=== PATIENT | male | born 1950 | race Caucasian/White ===

== ENCOUNTER 2021-12-13 01:49 | Day surgery (SDC) | payer MEDICARE, SELFPAY ==
--- NOTE | 2021-12-02 15:00 | PC.NURSE ---
Report to the Outpatient Waiting Room, entrance under the green pavilion located off [facility], at time _0800 on date _12/13/21 . OR Time: 1000 . - You and your visitor will be asked a series of questions to screen for COVID 19 for your protection. - Only one visitor is allowed at this time. - The patient visitor is requested to leave or wait in car when not with patient. - A mask is required within the hospital. Patients may have clear liquids (water, carbonated beverages, clear teas, apple juice) until 3 hours prior to surgery with a maximum of 20 ounces. - No food from midnight until time of surgery - Infants may have breast milk until 4 hours before surgery, infant formula 6 hours prior to surgery. - Children will be allowed to drink immediately following surgery. If applicable, please bring a bottle or sippy cup to assist with drinking. Juice, water, soda, and popsicles are readily available. For infants on formula, please bring formula the day of surgery. Pacifiers are allowed. Take the following medications with a SIP of water the morning of surgery: __NONE Medications to discontinue per physician ____ALL VITAMINS AND SUPPLEMENTS 3 DAYS PRE OP Date to take last dose__12/09/21 Please no make-up, nail brit[place] islander, hairspray, perfume, deodorant, or body powder the day of surgery. No jewelry (including any body piercings) or valuables the day of surgery, leave them at home. Please take a shower or bath the night before, or the morning of, surgery with an antibacterial soap. Wear comfortable, loose fitting clothing. Children are encouraged to wear pajamas. - Jewelry must be removed prior to entering the operating room. Rings and piercings that are not removed may be cut off. - The hospital will not accept responsibility for valuables. - Please leave all valuables, including medications, at home the day of surgery. If you are going home after surgery, a licensed batch mixing truck driver must drive you home. - NO public transportation without another adult. - We recommend that an adult stay with you for 24 hours following discharge. - We also recommend that you do not drive, make important decision, drink alcoholic beverages, or take any drugs that were not prescribed by your health care provider for at least 24 hours after your discharge time. For Pediatric surgeries, we recommend two adults accompany the child home (only one inside the building at this time). Follow any additional instructions given to you from your surgeon. If you or anyone in your household have experienced Covid symptoms in the past week, please notify your surgeon or the nurse liaison at the phone number below for possible testing. Telephone instructions given to _PATIENT and asked if any additional questions and then verbalized understanding. Patient advised to call surgeon office or pre surgery nurse liaison [phone] if any additional questions.
[2021-12-02 15:13] VITALS: BMI 23.2
--- NOTE | 2021-12-12 10:47 | WPDANESEPPF ---
Anes - Initial Pre Proc Eval Procedure: Operation Date: 12/13/21 10:00 Proposed Procedures p Proximal Interphlangeal Joint Arthroplasty of Fourth and Fifth Digits Left Foot, - Monroe Diaz JR, MD s Exostectomy Fifth Digit Left Foot - Monroe Diaz JR, MD Date/Time: 12/12/21 10:47 Surgeon: Monroe Diaz JR, MD Pre Op Diagnosis: hammer toe 4th and 5th digit left foot Patient Data Age: 71 Gender: M Height: 1.74 m Weight: 70.35 kg Allergies Allergy/AdvReac Type Severity Reaction Status Date / Time No Known Allergies Allergy Verified 12/02/21 14:32 Home Medications Medication Instructions Recorded Confirmed Type bisoprolol 5 1 tablet PO DAILY 12/02/21 12/02/21 History mg-hydrochlorothiazide 6.25 mg tablet calcium carbonate 600 mg-vitamin 1 tablet PO DAILY 12/02/21 12/02/21 History D3 10 mcg (400 unit) tablet (Calcium 600 + D(3)) cetirizine 10 mg tablet 10 mg PO DAILY PRN Allergy Symptoms 12/02/21 12/02/21 History ezetimibe 10 mg tablet 1 tablet PO DAILY 12/02/21 12/02/21 History famotidine 20 mg tablet 1 tablet PO DAILY 12/02/21 12/02/21 History fluticasone propionate 50 1 ea intranasal HS 12/02/21 12/02/21 History mcg/actuation nasal spray,suspension folic acid 1 mg tablet 1 mg PO DAILY 12/02/21 12/02/21 History hydroxychloroquine 200 mg tablet 1 tablet PO DAILY 12/02/21 12/02/21 History latanoprost 0.005 % eye drops 1 drp EACH EYE 12/02/21 12/02/21 History lisinopril 10 mg tablet 1 tablet PO DAILY 12/02/21 12/02/21 History mecobalamin (vitamin B12) 1,000 1,000 mcg PO DAILY 12/02/21 12/02/21 History mcg chewable tablet metformin 500 mg tablet,extended 1 tablet PO DAILY 12/02/21 12/02/21 History release 24 hr methotrexate sodium (PF) 25 mg/mL 25 ml PO WEEKLY 12/02/21 12/02/21 History injection solution nabumetone 500 mg tablet 1 tablet PO BID 12/02/21 12/02/21 History ropinirole 0.5 mg tablet 1 tablet PO HS 12/02/21 12/02/21 History simvastatin 20 mg tablet 1 tablet PO DAILY 12/02/21 12/02/21 History Patient hx anesthesia problems: none Family hx anesthesia problems: none Results Review: All pre-operative results and documents have been reviewed as part of the pre-operative evaluation. [facility] Past Medical History Medical History (Updated 12/12/21 @ 10:48 by Minh Alvarenga MD) Chronic GERD Diabetes HTN (hypertension) Hyperlipidemia Prostate CA Rheumatoid arthritis Social History Social History Smoking status: Never smoker Alcohol intake: current Drinks per week: 3 Living arrangements: with family Spiritual care concerns: No Anes - Eval Final PreProcedure Day of Procedure 12/12/21 10:47 Patient weight: obese Heart: regular rate and rhythm Lungs: clear to auscultation and normal air movement Airway: Mallampati scale class II Neurological: alert and oriented Last oral intake: >/= 8 hours ASA classification: III Emergent: no Anesthetic plan: proceed Anesthesia type and monitoring: general GIVS Results Review: All pre-operative results and documents have been reviewed as part of the pre-operative evaluation. Informed Consent: The patient's anesthetic plan and its attendant risks and benefits were discussed with the patient/family/POA. Questions were solicited and answers provided to the satisfaction of the patient/family/POA.
--- NOTE | ~2021-12-13 | XR_ITS ---
EXAMINATION: XR surgery orthopedic DATE: 12/13/2021 11:25 INDICATION: Arthroplasty at the left fourth proximal interphalangeal joint TECHNIQUE: 2 fluoroscopic images of the left forefoot were obtained during procedure performed by Dr. Diaz. Radiologist was not present for the imaging or procedure. The amount of fluoroscopy time u sed during this procedure was 0.1 minutes. COMPARISON: None. FINDINGS: Arthrodesis at the fourth proximal interphalangeal joint with likely osteotomy at the head of the fou rth proximal phalanx. The arthrodesis is fixed with a bidirectional screw placed over a percutaneous wire which extends from the tuft of the distal phalanx across the middle and proximal phalanges into the empty fourth metatarsal. There also appears to be an age-indeterminate osteotomy at the head of t he fifth proximal phalanx. No fractures identified. IMPRESSION: 1. Fluoroscopy utilized during internally fixed fourth proximal interphalangeal joint arthrodesis. Se e procedure note for further detail. 2. Age indeterminate osteotomy at the head of the fifth proximal phalanx. Reviewed, dictated and finalized at location A. IMPRESSION: 1. Fluoroscopy utilized during internally fixed fourth proximal interphalangeal joint arthrodesis. See procedure note for further detail. 2. Age indeterminate osteotomy at the head of the fifth proximal phalanx.
--- NOTE | 2021-12-13 07:14 | WPDHPUPDATE1 ---
History and Physical Update Update Date/Time: 12/13/21 07:14 History and Physical has been reviewed, including an updated exam of the patient. There are NO changes in the patient's condition. Risks, benefits, and alternatives have been discussed and questions answered. Patient agrees to proceed with procedure.
[2021-12-13 08:48] LABS: Glucose Point of Care 147 mg/dl (65-105)
[2021-12-13 08:52] VITALS: BP 167/68; PULSE 60; RESP 14; TEMP 36.2; O2SAT 99
[2021-12-13] MEDS: LACTATED RINGERS 1,000 ML 30 ML IV CONT (08:57)
--- NOTE | 2021-12-13 10:05 | SUR.PREOP ---
pt made aware of surgical case delay.
[2021-12-13] MEDS: LIDOCAINE HCL 2% LOCAL INJ 20 ML VIAL 10 ML INFILTRATE (10:39)
[2021-12-13] MEDS: BUPIVACAINE HCL 0.5% PF 30 ML VIAL INFILTRATE (10:39)
[2021-12-13] MEDS: ceFAZolin 2 GM/D5W 50 ML 2 GM/50 ML BAG IVPB (10:39)
[2021-12-13 11:35] VITALS: BP 149/81; PULSE 58; RESP 16
[2021-12-13 11:45] LABS: Glucose Point of Care 124 mg/dl (65-105)
[2021-12-13 12:00] VITALS: BP 151/83; PULSE 60; RESP 16
--- NOTE | 2021-12-13 12:12 | W.PM.PROC2 ---
Procedure Note - Detailed Date of Procedure 12/13/21 Pre-op Diagnosis 1. Hammer toe 4th and 5th digit left foot 2. Heloma Molle fourth and fifth digits left foot Post-op Diagnosis Same Procedure Performed 1. Arthrodesis of the fourth digit proximal interphalangeal joint left foot 2. Arthroplasty of the head of the proximal phalanx fifth digit left foot 3. Partial phalangectomy distal phalanx of the fifth digit left foot Surgeon Monroe Diaz JR, DAMARI Indications Deformity and painful recurrent hyperkeratotic lesion between the fourth and fifth digits of the left foot Description of Procedure Under mild sedation, the patient was brought in to the operating room, placed on the operating table in the supine position. A pneumatic ankle tourniquet was placed about the patient's left ankle. Following monitored anesthesia care, local anesthesia was obtained about the foot utilizing mL of a 1:1 mixture of 2% Lidocaine plain and 0.5% Marcaine plain with a modified proximal Burkett block proximal to each corresponding digits. The foot was then scrubbed, prepped, and draped in the usual aseptic manner. An Esmarch bandage was then used to exsanguinate the patient's foot and the pneumatic ankle tourniquet was then inflated. Attention was directed to the fourth digit where a 2cm incision was made from the distal interphalangeal joint extending to the base of the proximal phalanx. A transverse tenotomy was created dorsal to the proximal interphalangeal joint, next the head of the proximal phalanx was resected with an oscillating saw blade. Next, utilizing the [employer] Phalinx Hammertoe joint prep system was used to allow for approximation of the middle and proximal phalanx. Next, I implanted a [employer] size medium Phalanx Hammertoe implant in a cannulated fashion within the canals of the corresponding phalanges of the the proximal interphalangeal joint with k-wire exiting through the distal phalanx. Fluoroscopy was used to make sure that the digit and implant were appropriately positioned. I reapproximated the subcutaneous structures with 4.0 Vicryl and the skin with 4-0 Monocryl. Next, I made a one cm incision over the proximal interphalangeal joint of the 5th digit I made a transverse flexor tenotomy over the interphalangeal joint and resected the head of the proximal phalanx. I reapproximated the extensor tendon over the joint and closed the skin with 4-0 Vicryl in simple interrupted suture technique. Next I made a one cm incision over the distal medial fifth digit distal phalanx and resected the medial one third of the distal phalanx with an oscillating saw blade. I closed the skin with 4-0 Monocryl in simple interrupted suture technique. Upon completion of the procedure, the incisions were dressed with Adaptic, 4x4s, Kerlix, and Coban. The pneumatic ankle tourniquet was then deflated and a prompt hyperemic response was noted to all digits of the foot. A surgical shoe was then applied. The patient did very well with the procedure and the anesthesia. The patient was transferred to the recovery room with vital signs stable and vascular status intact to all toes of the affected foot. Following a period of postoperative monitoring, the patient will be discharged home on the following written and oral postoperative instructions: 1. The patient should keep the dressing clean, dry, and intact. Use a cast protector bag with showers. 2. The patient will be protected with surgical shoe. 3. Patient should ice and elevate the affected foot when at rest. 4. The patient is to contact Dr. Diaz for all postop care and if any problems arise. 5. Prescriptions were written for Percocet 5/325mg to be taken 1 p.o. 6 hours as needed for severe pain. Implants [employer] size medium Hammertoe implant with a 0.045 kwire Estimated Blood Loss 1 Complications No immediate complications Condition Stable Disposition Same day
[2021-12-13 12:29] VITALS: BP 146/74; PULSE 64; RESP 16
--- NOTE | 2021-12-13 12:36 | SUR.PHASEII ---
1225 - in room. pt has postop shoe already and prescription already.
[2021-12-13 13:00] VITALS: BP 133/67; PULSE 62; RESP 16
[2021-12-13 13:20] VITALS: BP 141/77; PULSE 55; RESP 16
== END 2021-12-13 13:40 | disposition home or self-care (01) ==
PROVIDERS: Visit Provider Podiatrist Foot & Ankle Surgery
PROC: (CPT 28285; principal; 2021-12-13 10:00)
PROC: (CPT 28285; 2021-12-13 10:00)
DX: M20.42 Other hammer toe(s) (acquired), left foot (principal); L84 Corns and callosities; I10 Essential (primary) hypertension; Z85.46 Personal history of malignant neoplasm of prostate; M06.9 Rheumatoid arthritis, unspecified
CPT/HCPCS: 28285 ×2; 82948; 99199; C1776; J0690; J2704; J3010; J7120